=== PATIENT | male | born 1990 | race Hispanic/Latino ===

== ENCOUNTER → 2020-03-27 | Outpatient (CLI) | payer SELFPAY | LOC: M LABSMTC 09:21 | PROVIDERS: ATTEND Pediatrics | DX: Z20.822 Contact with and (suspected) exposure to COVID-19 (principal) ==

== ENCOUNTER → 2020-06-30 | Outpatient (CLI) | payer OTHER ==
[~2020-06-30] MED LIST: BUSP15TA47 PO; GLUCAGON INJ 1MG VIAL As Ordered ONE; ISOVUE-370 76% 100ML VIAL As Ordered ONE; QUET25TA3 PO; VoLumen 0.1% SUSPENSION 450ML BOTTLE As Ordered ONE
--- NOTE | 2020-06-30 09:47 | REP ---
INDICATION: PARITAL BOWEL OBST / DIARRHEA ? ADHESIONS COMPARISON: None. TECHNIQUE: Axial contrast-enhanced images from the lung bases to the pubic symphysis with images obtained in arterial and portal venous phases of enhancement. Low-dose oral contrast material was administered prior to imaging. Coronal and sagittal reformations were obtained. This CT examination was performed using the following dose reduction techniques: Automated exposure control, adjustment of mA and/or kv according to the patient's size, and use of iterative reconstruction technique. FINDINGS: Evaluation of the enteric system is somewhat limited by the presence of moderate fecal stasis/retained fecal material throughout the colon as well as poor fluid-filled luminal distention of the small bowel. A surgical suture line is identified in the mid abdomen. There is no evidence for current bowel obstruction. No obvious perienteric inflammatory stranding or areas of mucosal thickening are identified. Scattered sigmoid diverticula noted without acute diverticulitis. No ascites. No free air. Liver, spleen, pancreas, gallbladder, bilateral adrenal glands and kidneys are normal. Pelvis demonstrates normal bladder and age-appropriate prostate/seminal vesicles. Few scattered mesenteric lymph nodes are nonspecific. Abdominal aorta and vasculature appear normal. Musculoskeletal structures are intact. Lung bases are clear. IMPRESSION: 1. Evaluation of the enteric system demonstrates prior small-bowel resection and anastomosis. No obvious associated acute process is appreciated. 2. Current examination demonstrates fecal retention/moderate fecal stasis which should be correlated clinically. 3. Scattered sigmoid diverticula without acute diverticulitis. <Electronically signed by Rick Andino > 06/30/20 0922
== END ==
LOC: M RAD 07:07
PROVIDERS: ATTEND Internal Medicine Gastroenterology
DX: K56.690 Other partial intestinal obstruction (principal); R19.7 Diarrhea, unspecified